=== PATIENT | female | born 1985 | race Caucasian/White ===

== ENCOUNTER 2018-04-22 10:13 | Inpatient (IN) | payer MEDICAID ==
[~2018-04-22 10:13] MED LIST: EPHEDrine SULFATE 50 MG/5 ML SYG; OXYTOCIN 10 UNIT INJ
[2018-04-22] MEDS: LACTATED RINGER'S 1,000 ML IV ×4 (11:38→19:30)
[2018-04-22 11:53] LABS: ADD MAN DIFF? NO
[2018-04-22 11:58] LABS: WHITE BLOOD COUNT 10.4 10^3/ul (4.8-10.8)
[2018-04-22 11:58] LABS: BASOPHILS % 0.4 % (0.0-2.0); EOSINOPHILS # 0.1 10^3/ul (0.0-0.5); EOSINOPHILS % 0.5 % (0.0-7.0); HEMOGLOBIN 12.8 g/dl (12.0-16.0); LYMPHOCYTES # 1.7 10^3/ul (0.8-2.9); LYMPHOCYTES % 16.1 % (15.0-51.0); MEAN CORPUSCULAR HEMOGLOBIN 31.4 pg (29.0-33.0); MEAN CORPUSCULAR HGB CONC 34.6 g/dl (32.0-37.0); MEAN CORPUSCULAR VOLUME 90.9 fl (82.0-101.0); MEAN PLATELET VOLUME 12.4 fl (7.4-10.4); MONOCYTE # 0.9 10^3/ul (0.3-0.9); MONOCYTES % 8.2 % (0.0-11.0); NEUTROPHIL # 7.7 10^3/ul (1.6-7.5); PLATELET COUNT 206 10^3/UL (140-415); RED BLOOD COUNT 4.07 10^6/ul (4.20-5.40); RED CELL DISTRIBUTION WIDTH 12.5 % (11.5-14.5)
[2018-04-22 12:24] LABS: INR 0.86; PROTIME 11.8 Sec (11.9-14.9); PT RATIO 0.9
[2018-04-22 12:25] LABS: PARTIAL THROMBOPLASTIN TIME 25.2 Sec (23.0-35.0)
[2018-04-22] MEDS ORDERED: METHYLERGONOVINE 0.2 MG INJ IM ×2 (12:30→19:30)
[2018-04-22] MEDS ORDERED: CLINDAMYCIN 900 MG/D5W (PMX) 50 ML IV (12:30)
[2018-04-22] MEDS ORDERED: CARBOPROST 250 MCG INJ IM ×2 (12:30→19:30)
[2018-04-22] MEDS ORDERED: MISOPROSTOL 200 MCG TAB PR ×2 (12:30→19:30)
[2018-04-22] MEDS ORDERED: OXYTOCIN 30 UNITS/LR 500 ML IV ×2 (12:30→19:30)
[2018-04-22 12:51] LABS: HEPATITIS B SURFACE ANTIGEN NEGATIVE (NEGATIVE)
[2018-04-22] MEDS ORDERED: GENTAMICIN 80 MG/NS (PMX) 50 ML IVPB (14:30)
[2018-04-22] MEDS ORDERED: METOCLOPRAMIDE 10 MG INJ IV (17:30)
[2018-04-22] MEDS ORDERED: FENTAnyl 50 MCG/ML VIAL IV ×2 (17:30)
[2018-04-22] MEDS ORDERED: KETOROLAC 30 MG INJ IV (17:30)
[2018-04-22] MEDS ORDERED: DIPHENHYDRAMINE 50 MG INJ IV ×2 (17:30)
[2018-04-22] MEDS ORDERED: HYDROmorphONE 1 MG/5 ML IV SYRINGE IV ×3 (17:30)
[2018-04-22] MEDS ORDERED: NALOXONE (0.4 MG/ML) INJ IV (17:30)
[2018-04-22] MEDS ORDERED: ONDANSETRON 4 MG INJ IV ×2 (17:30)
[2018-04-22] MEDS ORDERED: HYDROmorphONE 0.5 MG/0.5 ML SYG IV (17:30)
[2018-04-22] MEDS ORDERED: morphine SULFATE/PF (10 MG/10 ML) INJ (17:53)
[2018-04-22] MEDS ORDERED: BUPIVACAINE 0.75%/DEXT (SPINAL) 2 ML INJ (17:53)
[2018-04-22] MEDS ORDERED: PHENYLephrine (100 MCG/ML) 5ML SYG ×2 (18:02→18:47)
[2018-04-22] MEDS ORDERED: OXYTOCIN 10 UNIT INJ (18:26)
[2018-04-22] MEDS: OXYTOCIN 30 UNITS/LR 500 ML IV ×3 (19:02→23:53)
[2018-04-22] MEDS: CLINDAMYCIN 900 MG/D5W (PMX) 50 ML IV (19:30)
[2018-04-22] MEDS ORDERED: OXYCODONE/ACETAMINOPHEN (5/325) TAB PO (19:30)
[2018-04-22 20:20] LABS: RAPID PLASMA REAGIN NONREACTIVE (NR)
[2018-04-22] MEDS: SENNA/DOCUSATE NA (8.6MG/50MG) TAB PO (21:00)
[2018-04-22] MEDS: HYDROmorphONE 0.5 MG/0.5 ML SYG IV (21:02)
[2018-04-23] MEDS: KETOROLAC 30 MG INJ IV ×2 (01:59→12:04)
[2018-04-23] MEDS: CLINDAMYCIN 900 MG/D5W (PMX) 50 ML IV ×2 (04:58→11:25)
[2018-04-23 09:14] LABS: ADD MAN DIFF? NO
[2018-04-23] MEDS: SENNA/DOCUSATE NA (8.6MG/50MG) TAB PO ×2 (09:15→20:55)
[2018-04-23 09:20] LABS: BASOPHILS % 0.3 % (0.0-2.0); EOSINOPHILS % 0.3 % (0.0-7.0); HEMATOCRIT 34.6 % (37.0-47.0); HEMOGLOBIN 11.9 g/dl (12.0-16.0); LYMPHOCYTES % 8.7 % (15.0-51.0); MEAN CORPUSCULAR HEMOGLOBIN 31.7 pg (29.0-33.0); MEAN CORPUSCULAR HGB CONC 34.4 g/dl (32.0-37.0); MEAN CORPUSCULAR VOLUME 92.3 fl (82.0-101.0); MEAN PLATELET VOLUME 12.2 fl (7.4-10.4); MONOCYTE # 1.1 10^3/ul (0.3-0.9); MONOCYTES % 9.4 % (0.0-11.0); NEUTROPHIL # 9.3 10^3/ul (1.6-7.5); NEUTROPHILS % 80.5 % (39.0-77.0); PLATELET COUNT 185 10^3/UL (140-415); RED BLOOD COUNT 3.75 10^6/ul (4.20-5.40); RED CELL DISTRIBUTION WIDTH 12.6 % (11.5-14.5)
[2018-04-23 09:20] LABS: WHITE BLOOD COUNT 11.6 10^3/ul (4.8-10.8)
[2018-04-23] MEDS: CLINDAMYCIN 900 MG/D5W (PMX) 50 ML IVPB (18:11)
[2018-04-23] MEDS: IBUPROFEN 600 MG TAB PO (23:06)
[2018-04-24] MEDS: IBUPROFEN 600 MG TAB PO ×4 (05:35→23:23)
[2018-04-24] MEDS: SENNA/DOCUSATE NA (8.6MG/50MG) TAB PO ×2 (08:30→22:18)
[2018-04-24] MEDS: OXYCODONE/ACETAMINOPHEN (5/325) TAB PO ×2 (08:30→15:40)
[2018-04-24] MEDS: LANOLIN 7 GM TUBE TOP (22:18)
[2018-04-25] MEDS: OXYCODONE/ACETAMINOPHEN (5/325) TAB PO ×2 (02:18→09:08)
[2018-04-25] MEDS: IBUPROFEN 600 MG TAB PO ×2 (05:51→13:45)
[2018-04-25] MEDS: SENNA/DOCUSATE NA (8.6MG/50MG) TAB PO (09:08)
== END 2018-04-25 16:05 | disposition home or self-care (01) | DRG 785 ==
LOC: OBT 10:13 → L-D 10:13 → OBT 13:11 → L-D 12:19 → PP1 22:06
PROVIDERS: Obstetrics & Gynecology
PROC: 10D00Z1 Extraction of Products of Conception, Low, Open Approach (ICD-10-PCS; principal; 2018-04-22)
PROC: 0UB70ZZ Excision of Bilateral Fallopian Tubes, Open Approach (ICD-10-PCS; 2018-04-22)
DX: O34.211 Maternal care for low transverse scar from previous cesarean delivery (principal); O35.8XX0 Maternal care for other (suspected) fetal abnormality and damage, not applicable or unspecified; Z3A.38 38 weeks gestation of pregnancy; Z37.0 Single live birth; Z30.2 Encounter for sterilization
CPT/HCPCS: 76818; 85025; 85610; 85730; 86592; 86850; 86900; 86901; 87340; 88302; 99464